=== PATIENT | female | born 1980 | race Caucasian/White ===

== ENCOUNTER 2024-06-15 14:05 | Outpatient (CLI) | payer OTHER ==
[~2024-06-15 14:05] MED LIST: ATABEX DHA 200200 MG; FLORANEX TABLE1 EACH; PRENATE DHA SO1 EAC1
== END 2024-06-15 14:06 | disposition home or self-care (01) ==
LOC: PRENATAL 14:05
PROVIDERS: ATTEND Obstetrics & Gynecology Maternal & Fetal Medicine
DX: O26.849 Uterine size-date discrepancy, unspecified trimester (principal); O36.8199 Decreased fetal movements, unspecified trimester, other fetus; O13.9 Gestational [pregnancy-induced] hypertension without significant proteinuria, unspecified trimester; O36.5990 Maternal care for other known or suspected poor fetal growth, unspecified trimester, not applicable or unspecified; O09.529 Supervision of elderly multigravida, unspecified trimester; O28.1 Abnormal biochemical finding on antenatal screening of mother; Z3A.33 33 weeks gestation of pregnancy